=== PATIENT | female | born 2000 | race Caucasian/White ===

== ENCOUNTER 2020-12-30 14:22 | Observation (INO) | payer OTHER ==
[~2020-12-30] VITALS: Ht 160 cm; Wt 78.9 kg
[2020-12-30] MEDS ORDERED: LACTATED RINGER'S 1,000 ML INJ STA ×2 (14:33)
[2020-12-30] MEDS ORDERED: ONDANSETRON HCL INJ 2MG/ML 2ML 2 MG/ML VIAL IV STA (14:55)
[2020-12-30 15:01] LABS: BASOPHILS % 0.3 % (0.0-1.0); EOSINOPHILS % 0.1 % (0.0-6.0); HEMATOCRIT 42.9 % (34.2-44.1); HEMOGLOBIN 14.1 g/dL (12.0-16.0); LYMPHOCYTES # (AUTO) 2.4 (1.0-3.2); LYMPHOCYTES % 31.2 % (18.0-39.1); MEAN CORPUSCULAR HEMOGLOBIN 28.3 pg (28-32); MEAN CORPUSCULAR HGB CONC 32.9 g/dL (31-35); MEAN CORPUSCULAR VOLUME 86.1 fL (81-99); MONOCYTES # (AUTO) 0.6 (0.2-0.8); MONOCYTES % 7.6 % (4.4-11.3); NEUTROPHILS # (AUTO) 4.6 (2.1-6.9); NEUTROPHILS % 60.7 % (38.7-80.0); PLATELET COUNT 341 x10e3/uL (140-360); RED BLOOD COUNT 4.98 x10e6/uL (3.6-5.1); RED CELL DISTRIBUTION WIDTH 14.6 % (11.7-14.4)
[2020-12-30] MEDS ORDERED: ONDANSETRON HCL INJ 2MG/ML 2ML 2 MG/ML VIAL ONE (15:02)
[2020-12-30 15:15] LABS: CLARITY,URINE SL CLOUDY (CLEAR); COLOR,URINE YELLOW (YELLOW); KETONES,URINE >=160 (NEGATIVE); LEUKOCYTE ESTERASE ,URINE NEGATIVE (NEGATIVE); NITRITE,URINE NEGATIVE (NEGATIVE); PROTEIN,URINE DIPSTICK 2+ (NEGATIVE)
[2020-12-30 15:16] LABS: URINE UROBILINOGEN 0.2 mg/dL (0.2 - 1)
[2020-12-30 15:22] LABS: AMORPHOUS SEDIMENT,URINE FEW (FEW); BACTERIA,URINE MANY /HPF; EPITHELIAL CELLS,URINE MODERATE /LPF
[2020-12-30 15:22] LABS: ALANINE AMINOTRANSFERASE 46 IU/L (0-55); ALBUMIN 4.5 g/dL (3.5-5.0); ALBUMIN/GLOBULIN RATIO 1.1 (0.8-2.0); ALKALINE PHOSPHATASE 78 IU/L (40-150); ANION GAP 28.5 mmol/L (8-16); BLOOD UREA NITROGEN < 5 mg/dL (7-26); BUN/CREATININE RATIO 6 (6-25); CARBON DIOXIDE 13 mmol/L (22-29); CHLORIDE 103 mmol/L (98-107); CREATINE KINASE 54 IU/L (29-168); CREATININE, SERUM 0.84 mg/dL (0.57-1.11); EST GLOMERULAR FILTRATION RATE > 60 ML/MIN (60-); GLUCOSE 103 mg/dL (74-118); POTASSIUM 3.5 mmol/L (3.5-5.1); SODIUM 141 mmol/L (136-145)
[2020-12-30] MEDS ORDERED: SODIUM CHLORIDE 0.9% 50ML 50 ML ONE (15:36)
[2020-12-30] MEDS ORDERED: IOPAMIDOL 370 MG/ML 200 ML INFUS..BTL INJ ONE (15:37)
[2020-12-30] MEDS ORDERED: ONDANSETRON HCL INJ 2MG/ML 2ML 2 MG/ML VIAL IV PRN (17:00)
[2020-12-30] MEDS ORDERED: MULTIVITAMINS- 12 INJECTION 10 ML, FOLIC ACID MDV 5 MG, THIAMINE HCL INJ 500 MG in SODI... IV ONE (17:00)
[2020-12-30] MEDS: SODIUM CHLORIDE 0.9% 1000ML 1,000 ML IV SCH (17:17)
[2020-12-30] MEDS ORDERED: SODIUM CHLORIDE 0.9% 1000ML 1,000 ML ONE (17:21)
[2020-12-30 22:27] VITALS: BP 132/86
[2020-12-30 22:35] VITALS: BP 132/86
[2020-12-30] MEDS ORDERED: ULTRAM50 MG PO (22:43)
[2020-12-30] MEDS ORDERED: OMEPRAZOLE20 M1 PO (22:43)
[2020-12-30 23:30] VITALS: BP 132/86
[2020-12-31] MEDS: SODIUM CHLORIDE 0.9% 1000ML 1,000 ML IV SCH ×3 (01:36→17:37)
[2020-12-31 04:37] VITALS: BP 108/70
[2020-12-31 04:54] LABS: BASOPHILS % 0.4 % (0.0-1.0); EOSINOPHILS # (AUTO) 0.1 (0.0-0.4); EOSINOPHILS % 1.7 % (0.0-6.0); HEMATOCRIT 36.6 % (34.2-44.1); HEMOGLOBIN 12.1 g/dL (12.0-16.0); LYMPHOCYTES # (AUTO) 4.4 (1.0-3.2); MEAN CORPUSCULAR HEMOGLOBIN 28.7 pg (28-32); MEAN CORPUSCULAR HGB CONC 33.1 g/dL (31-35); MEAN CORPUSCULAR VOLUME 86.7 fL (81-99); MONOCYTES # (AUTO) 0.7 (0.2-0.8); MONOCYTES % 9.5 % (4.4-11.3); NEUTROPHILS # (AUTO) 1.9 (2.1-6.9); NEUTROPHILS % 26.3 % (38.7-80.0); PLATELET COUNT 269 x10e3/uL (140-360); RED BLOOD COUNT 4.22 x10e6/uL (3.6-5.1); RED CELL DISTRIBUTION WIDTH 14.6 % (11.7-14.4)
[2020-12-31 05:22] LABS: ANION GAP 19.1 mmol/L (8-16); CALCIUM 7.7 mg/dL (8.4-10.2); CARBON DIOXIDE 17 mmol/L (22-29); CHLORIDE 111 mmol/L (98-107); CREATININE, SERUM 0.68 mg/dL (0.57-1.11); EST GLOMERULAR FILTRATION RATE > 60 ML/MIN (60-); GLUCOSE 72 mg/dL (74-118); POTASSIUM 3.1 mmol/L (3.5-5.1); SODIUM 144 mmol/L (136-145)
[2020-12-31 05:33] LABS: BLOOD UREA NITROGEN < 2 mg/dL (7-26); BUN/CREATININE RATIO 3 (6-25)
[2020-12-31 07:23] VITALS: BP 116/64
[2020-12-31 07:51] VITALS: BP 116/64
[2020-12-31] MEDS ORDERED: POTASSIUM CHLORIDE 20 MEQ TAB CR PO ONE ×2 (10:45→12:30)
[2020-12-31 11:33] VITALS: BP 124/86
[2020-12-31 16:07] VITALS: BP 105/73
[2020-12-31 20:00] VITALS: BP 118/89
[2021-01-01] VITALS: BP 115/79
[2021-01-01] MEDS: SODIUM CHLORIDE 0.9% 1000ML 1,000 ML IV SCH ×2 (03:10→08:29)
[2021-01-01 04:30] VITALS: BP 101/63
[2021-01-01 08:01] VITALS: BP 121/76
[2021-01-01 08:11] VITALS: BP 121/76
[2021-01-01 08:22] LABS: BASOPHILS % 0.5 % (0.0-1.0); EOSINOPHILS # (AUTO) 0.2 (0.0-0.4); EOSINOPHILS % 2.6 % (0.0-6.0); HEMATOCRIT 35.5 % (34.2-44.1); HEMOGLOBIN 11.7 g/dL (12.0-16.0); LYMPHOCYTES # (AUTO) 3.5 (1.0-3.2); LYMPHOCYTES % 59.5 % (18.0-39.1); MEAN CORPUSCULAR VOLUME 87.9 fL (81-99); MONOCYTES # (AUTO) 0.6 (0.2-0.8); MONOCYTES % 9.4 % (4.4-11.3); NEUTROPHILS # (AUTO) 1.6 (2.1-6.9); NEUTROPHILS % 27.8 % (38.7-80.0); PLATELET COUNT 251 x10e3/uL (140-360); RED BLOOD COUNT 4.04 x10e6/uL (3.6-5.1); RED CELL DISTRIBUTION WIDTH 14.6 % (11.7-14.4)
[2021-01-01 08:41] LABS: ANION GAP 16.1 mmol/L (8-16); CALCIUM 7.5 mg/dL (8.4-10.2); CARBON DIOXIDE 23 mmol/L (22-29); CHLORIDE 105 mmol/L (98-107); EST GLOMERULAR FILTRATION RATE > 60 ML/MIN (60-); GLUCOSE 71 mg/dL (74-118); POTASSIUM 3.1 mmol/L (3.5-5.1); SODIUM 141 mmol/L (136-145)
[2021-01-01 08:42] LABS: BLOOD UREA NITROGEN < 2 mg/dL (7-26); BUN/CREATININE RATIO 3 (6-25)
[2021-01-01] MEDS ORDERED: POTASSIUM CHLORIDE 20 MEQ TAB CR PO STA (11:09)
[2021-01-01 11:30] VITALS: BP 117/75
[2021-01-01] MEDS ORDERED: POTASSIUM CHLORIDE 20 MEQ TAB CR PO ONE (13:00)
== END 2021-01-01 13:45 | disposition home or self-care (01) ==
LOC: ER 15:23 → ERHOLD 16:48 → IMCU 22:08
DX: E86.0 Dehydration (principal); E87.2 Acidosis; Z98.84 Bariatric surgery status; E87.6 Hypokalemia; Z20.822 Contact with and (suspected) exposure to COVID-19
CPT/HCPCS: 36415 ×3; 74177; 80048 ×2; 80053; 81001; 82550; 82553; 83690; 84484; 84702; 85025 ×3; 99284; G0378 ×3; J2405; J3411; J7030 ×3; J7121; Q9967; U0002

== ENCOUNTER 2021-01-09 18:32 | Inpatient (IN) | payer OTHER ==
[~2021-01-09] VITALS: Ht 160 cm; Wt 78.9 kg
[~2021-01-09 18:32] MED LIST: OMEPRAZOLE20 M1 PO; ULTRAM50 MG PO
[2021-01-09] MEDS ORDERED: ONDANSETRON HCL INJ 2MG/ML 2ML 2 MG/ML VIAL IV STA (18:47)
[2021-01-09 19:07] LABS: BASOPHILS % 0.4 % (0.0-1.0); EOSINOPHILS # (AUTO) 0.1 (0.0-0.4); EOSINOPHILS % 0.7 % (0.0-6.0); HEMATOCRIT 40.9 % (34.2-44.1); LYMPHOCYTES # (AUTO) 1.8 (1.0-3.2); MEAN CORPUSCULAR HEMOGLOBIN 28.4 pg (28-32); MEAN CORPUSCULAR HGB CONC 31.8 g/dL (31-35); MEAN CORPUSCULAR VOLUME 89.3 fL (81-99); MONOCYTES # (AUTO) 0.5 (0.2-0.8); MONOCYTES % 6.4 % (4.4-11.3); NEUTROPHILS # (AUTO) 4.7 (2.1-6.9); NEUTROPHILS % 66.4 % (38.7-80.0); PLATELET COUNT 279 x10e3/uL (140-360); RED BLOOD COUNT 4.58 x10e6/uL (3.6-5.1); RED CELL DISTRIBUTION WIDTH 14.5 % (11.7-14.4)
[2021-01-09] MEDS: SODIUM CHLORIDE 0.9% 1000ML 1,000 ML IV SCH (19:24)
[2021-01-09 19:27] LABS: ALANINE AMINOTRANSFERASE 63 IU/L (0-55); ALBUMIN 3.9 g/dL (3.5-5.0); ALBUMIN/GLOBULIN RATIO 1.2 (0.8-2.0); ALKALINE PHOSPHATASE 67 IU/L (40-150); ANION GAP 19.3 mmol/L (8-16); BLOOD UREA NITROGEN < 5 mg/dL (7-26); BUN/CREATININE RATIO 8 (6-25); CALCIUM 8.7 mg/dL (8.4-10.2); CARBON DIOXIDE 25 mmol/L (22-29); CHLORIDE 101 mmol/L (98-107); CREATININE, SERUM 0.66 mg/dL (0.57-1.11); EST GLOMERULAR FILTRATION RATE > 60 ML/MIN (60-); GLUCOSE 97 mg/dL (74-118); POTASSIUM 3.3 mmol/L (3.5-5.1); SODIUM 142 mmol/L (136-145)
[2021-01-09 19:28] LABS: CLARITY,URINE CLEAR (CLEAR); COLOR,URINE ORANGE (YELLOW)
[2021-01-09 19:29] LABS: KETONES,URINE >=160 (NEGATIVE); LEUKOCYTE ESTERASE ,URINE LARGE (NEGATIVE); MAGNESIUM 1.6 MG/DL (1.3-2.1); NITRITE,URINE POSITIVE (NEGATIVE); PROTEIN,URINE DIPSTICK >=300 (NEGATIVE); URINE UROBILINOGEN 8 mg/dL (0.2 - 1)
[2021-01-09 19:32] LABS: BACTERIA,URINE MANY /HPF; EPITHELIAL CELLS,URINE MODERATE /LPF; RBC,URINE 21-50 /HPF (0-5)
[2021-01-09] MEDS ORDERED: MORPHINE SULFATE INJ 2 MG/ML SYR IV STA (19:36)
[2021-01-09] MEDS ORDERED: CEFTRIAXONE SOD 1 GM in SODIUM CHLORIDE 0.9% 50ML 50 ML IV ONE (19:45)
[2021-01-09] MEDS ORDERED: CEFTRIAXONE SOD 1 GM/50 ML BAG IV ONE (19:45)
[2021-01-09] MEDS ORDERED: CEFTRIAXONE SOD 1 GM/50 ML BAG IV SCH (22:00)
[2021-01-09] MEDS: CEFTRIAXONE SOD 1 GM in SODIUM CHLORIDE 0.9% 50ML 50 ML IV SCH (23:32)
[2021-01-10] VITALS (8 sets, daily range): BP systolic 110–137; BP diastolic 72–92
[2021-01-10] MEDS: MORPHINE SULFATE INJ 4 MG/ML INJ 1ML IV PRN ×5 (00:45→23:11)
[2021-01-10] MEDS: ONDANSETRON HCL INJ 2MG/ML 2ML 2 MG/ML VIAL IV PRN ×5 (00:45→23:11)
[2021-01-10] MEDS: SODIUM CHLORIDE 0.9% 1000ML 1,000 ML IV SCH ×5 (01:21→22:00)
[2021-01-10 07:49] LABS: BASOPHILS % 0.5 % (0.0-1.0); EOSINOPHILS # (AUTO) 0.1 (0.0-0.4); EOSINOPHILS % 1.9 % (0.0-6.0); HEMATOCRIT 37.2 % (34.2-44.1); HEMOGLOBIN 11.6 g/dL (12.0-16.0); LYMPHOCYTES # (AUTO) 2.9 (1.0-3.2); LYMPHOCYTES % 45.3 % (18.0-39.1); MEAN CORPUSCULAR HEMOGLOBIN 28.4 pg (28-32); MEAN CORPUSCULAR HGB CONC 31.2 g/dL (31-35); MEAN CORPUSCULAR VOLUME 91.2 fL (81-99); MONOCYTES # (AUTO) 0.7 (0.2-0.8); MONOCYTES % 11.6 % (4.4-11.3); NEUTROPHILS # (AUTO) 2.6 (2.1-6.9); NEUTROPHILS % 40.5 % (38.7-80.0); PLATELET COUNT 231 x10e3/uL (140-360); RED BLOOD COUNT 4.08 x10e6/uL (3.6-5.1); RED CELL DISTRIBUTION WIDTH 14.5 % (11.7-14.4)
[2021-01-10 08:09] LABS: ALANINE AMINOTRANSFERASE 48 IU/L (0-55); ALBUMIN 3.3 g/dL (3.5-5.0); ALBUMIN/GLOBULIN RATIO 1.2 (0.8-2.0); ALKALINE PHOSPHATASE 57 IU/L (40-150); AMYLASE 40 U/L (25-125); ANION GAP 14.5 mmol/L (8-16); BLOOD UREA NITROGEN < 5 mg/dL (7-26); CALCIUM 7.8 mg/dL (8.4-10.2); CARBON DIOXIDE 24 mmol/L (22-29); CHLORIDE 107 mmol/L (98-107); CREATININE, SERUM 0.67 mg/dL (0.57-1.11); EST GLOMERULAR FILTRATION RATE > 60 ML/MIN (60-); GLUCOSE 76 mg/dL (74-118); LIPASE 61 U/L (8-78); POTASSIUM 3.5 mmol/L (3.5-5.1); SODIUM 142 mmol/L (136-145)
[2021-01-10 08:10] LABS: BUN/CREATININE RATIO 7 (6-25)
[2021-01-10] MEDS ORDERED: PANTOPRAZOLE 40 MG 10ML VIAL IV SCH (11:00)
[2021-01-10] MEDS: PANTOPRAZOLE 40 MG 10ML VIAL IV SCH (16:51)
[2021-01-10] MEDS ORDERED: SODIUM CHLORIDE 0.9% 50ML 50 ML ONE (21:22)
[2021-01-10] MEDS ORDERED: CEFTRIAXONE SOD 1 GM VIAL ONE (21:22)
[2021-01-10] MEDS: CEFTRIAXONE SOD 1 GM in SODIUM CHLORIDE 0.9% 50ML 50 ML IV SCH (22:00)
[2021-01-11] VITALS: BP 117/71
[2021-01-11] MEDS: ONDANSETRON HCL INJ 2MG/ML 2ML 2 MG/ML VIAL IV PRN ×3 (03:43→13:06)
[2021-01-11] MEDS: MORPHINE SULFATE INJ 4 MG/ML INJ 1ML IV PRN ×3 (03:43→13:06)
[2021-01-11 04:00] VITALS: BP 94/59
[2021-01-11] MEDS: SODIUM CHLORIDE 0.9% 1000ML 1,000 ML IV SCH (04:40)
[2021-01-11 06:08] LABS: BASOPHILS % 0.4 % (0.0-1.0); EOSINOPHILS # (AUTO) 0.1 (0.0-0.4); EOSINOPHILS % 1.4 % (0.0-6.0); HEMATOCRIT 36.3 % (34.2-44.1); HEMOGLOBIN 11.4 g/dL (12.0-16.0); LYMPHOCYTES # (AUTO) 3.8 (1.0-3.2); LYMPHOCYTES % 50.6 % (18.0-39.1); MEAN CORPUSCULAR HEMOGLOBIN 28.2 pg (28-32); MEAN CORPUSCULAR HGB CONC 31.4 g/dL (31-35); MEAN CORPUSCULAR VOLUME 89.9 fL (81-99); MONOCYTES # (AUTO) 0.8 (0.2-0.8); NEUTROPHILS # (AUTO) 2.8 (2.1-6.9); NEUTROPHILS % 37.3 % (38.7-80.0); PLATELET COUNT 251 x10e3/uL (140-360); RED BLOOD COUNT 4.04 x10e6/uL (3.6-5.1); RED CELL DISTRIBUTION WIDTH 14.2 % (11.7-14.4)
[2021-01-11 06:32] LABS: ANION GAP 12.5 mmol/L (8-16); CALCIUM 7.6 mg/dL (8.4-10.2); CARBON DIOXIDE 23 mmol/L (22-29); CHLORIDE 108 mmol/L (98-107); CREATININE, SERUM 0.66 mg/dL (0.57-1.11); EST GLOMERULAR FILTRATION RATE > 60 ML/MIN (60-); GLUCOSE 77 mg/dL (74-118); POTASSIUM 3.5 mmol/L (3.5-5.1); SODIUM 140 mmol/L (136-145)
[2021-01-11 06:41] LABS: BLOOD UREA NITROGEN < 5 mg/dL (7-26); BUN/CREATININE RATIO 8 (6-25)
[2021-01-11 07:07] LABS: FERRITIN 215.45 ng/mL (4.63-204.00)
[2021-01-11] MEDS: PANTOPRAZOLE 40 MG 10ML VIAL IV SCH ×2 (07:55→09:00)
[2021-01-11 07:59] VITALS: BP 109/65
[2021-01-11 09:23] VITALS: BP 109/65
[2021-01-11 12:12] VITALS: BP 101/63
[2021-01-11] MEDS ORDERED: ceftin PO (13:13)
[2021-01-11] MEDS ORDERED: PANTOPRAZOLE SO40 MG PO (13:13)
== END 2021-01-11 13:26 | disposition home or self-care (01) | DRG 689 ==
LOC: ER 18:50 → ERHOLD 21:53 → MED/SURG 01-10 00:40
DX: N39.0 Urinary tract infection, site not specified (principal); K85.90 Acute pancreatitis without necrosis or infection, unspecified; I10 Essential (primary) hypertension; G40.909 Epilepsy, unspecified, not intractable, without status epilepticus; G44.1 Vascular headache, not elsewhere classified; Z98.84 Bariatric surgery status; K82.8 Other specified diseases of gallbladder; K21.9 Gastro-esophageal reflux disease without esophagitis; K80.80 Other cholelithiasis without obstruction; Z20.822 Contact with and (suspected) exposure to COVID-19
CPT/HCPCS: 36415; 76705; 80048; 80053; 81001; 81025; 82150; 82607; 82728; 82746; 83540; 83690; 83735; 84466; 85025; 85045; 87040; 87086; 96374; 96375; 99284; J0696; J2270; J2405; J7030; U0002

== ENCOUNTER 2021-02-24 04:45 | Emergency (ER) | payer OTHER ==
[~2021-02-24] VITALS: Ht 157.5 cm; Wt 74.8 kg
[~2021-02-24 04:45] MED LIST changes: +PANTOPRAZOLE SO40 MG PO; +ceftin PO
[2021-02-24] MEDS ORDERED: SODIUM CHLORIDE 0.9% 1000ML 1,000 ML IV STA (05:21)
[2021-02-24] MEDS ORDERED: PANTOPRAZOLE 40 MG 10ML VIAL IV STA (05:28)
[2021-02-24] MEDS ORDERED: ONDANSETRON HCL INJ 2MG/ML 2ML 2 MG/ML VIAL IV PRN (05:30)
[2021-02-24 05:52] LABS: BASOPHILS # (AUTO) 0.1 (0.0-0.1); BASOPHILS % 0.5 % (0.0-1.0); EOSINOPHILS # (AUTO) 0.2 (0.0-0.4); EOSINOPHILS % 1.4 % (0.0-6.0); HEMATOCRIT 40.8 % (34.2-44.1); HEMOGLOBIN 13.6 g/dL (12.0-16.0); LYMPHOCYTES # (AUTO) 2.5 (1.0-3.2); MEAN CORPUSCULAR HEMOGLOBIN 28.9 pg (28-32); MEAN CORPUSCULAR HGB CONC 33.3 g/dL (31-35); MEAN CORPUSCULAR VOLUME 86.6 fL (81-99); MONOCYTES # (AUTO) 0.6 (0.2-0.8); MONOCYTES % 5.1 % (4.4-11.3); NEUTROPHILS # (AUTO) 7.6 (2.1-6.9); NEUTROPHILS % 69.6 % (38.7-80.0); PLATELET COUNT 302 x10e3/uL (140-360); RED BLOOD COUNT 4.71 x10e6/uL (3.6-5.1); RED CELL DISTRIBUTION WIDTH 13.2 % (11.7-14.4)
[2021-02-24 06:23] LABS: ALANINE AMINOTRANSFERASE 42 IU/L (0-55); ALBUMIN/GLOBULIN RATIO 1.4 (0.8-2.0); ALKALINE PHOSPHATASE 67 IU/L (40-150); ANION GAP 13.3 mmol/L (8-16); BLOOD UREA NITROGEN 5 mg/dL (7-26); BUN/CREATININE RATIO 8 (6-25); CALCIUM 9.4 mg/dL (8.4-10.2); CARBON DIOXIDE 24 mmol/L (22-29); CHLORIDE 108 mmol/L (98-107); CREATININE, SERUM 0.65 mg/dL (0.57-1.11); EST GLOMERULAR FILTRATION RATE > 60 ML/MIN (60-); GLUCOSE 106 mg/dL (74-118); LIPASE 84 U/L (8-78); POTASSIUM 3.3 mmol/L (3.5-5.1); SODIUM 142 mmol/L (136-145)
[2021-02-24] MEDS ORDERED: DONNATAL/LIDOCAINE/MAALOX 30 ML SUSP PO STA (06:28)
[2021-02-24] MEDS ORDERED: DICYCLOMINE HCL10 MG PO (06:59)
[2021-02-24 07:01] LABS: CLARITY,URINE SL CLOUDY (CLEAR); COLOR,URINE YELLOW (YELLOW)
[2021-02-24 07:02] LABS: KETONES,URINE TRACE (NEGATIVE); LEUKOCYTE ESTERASE ,URINE TRACE (NEGATIVE); NITRITE,URINE NEGATIVE (NEGATIVE); PROTEIN,URINE DIPSTICK NEGATIVE (NEGATIVE); URINE UROBILINOGEN 1 mg/dL (0.2 - 1)
[2021-02-24] MEDS ORDERED: ONDANSETRON ODT4 MG PO (07:02)
[2021-02-24 07:41] LABS: WBC,URINE (MAN) 0-5 /HPF (0-5)
[2021-02-24 07:42] LABS: BACTERIA,URINE FEW /HPF; EPITHELIAL CELLS,URINE FEW /LPF
== END 2021-02-24 08:14 | disposition home or self-care (01) ==
LOC: ER 05:23
DX: R10.11 Right upper quadrant pain (principal); I10 Essential (primary) hypertension; G40.909 Epilepsy, unspecified, not intractable, without status epilepticus; F41.9 Anxiety disorder, unspecified; Z98.84 Bariatric surgery status; F17.210 Nicotine dependence, cigarettes, uncomplicated
CPT/HCPCS: 36415; 80053; 81001; 83690; 84702; 85025; 96374; 96375; 99284; C9113; J2405; J7030

== ENCOUNTER 2021-07-13 13:10 | Emergency (ER) | payer OTHER ==
[~2021-07-13] VITALS: Ht 157.5 cm; Wt 74.8 kg
[~2021-07-13 13:10] MED LIST changes: +DICYCLOMINE HCL10 MG PO; +ONDANSETRON ODT4 MG PO
[2021-07-13] MEDS ORDERED: KETOROLAC TROMETHAMINE 30 MG/ML VIAL IV STA (13:27)
[2021-07-13] MEDS ORDERED: ONDANSETRON HCL INJ 2MG/ML 2ML 2 MG/ML VIAL IV STA (13:27)
[2021-07-13 13:56] LABS: BASOPHILS % 0.3 % (0.0-1.0); EOSINOPHILS # (AUTO) 0.1 (0.0-0.4); EOSINOPHILS % 0.5 % (0.0-6.0); HEMATOCRIT 42.3 % (34.2-44.1); LYMPHOCYTES # (AUTO) 2.3 (1.0-3.2); LYMPHOCYTES % 16.9 % (18.0-39.1); MEAN CORPUSCULAR HEMOGLOBIN 29.3 pg (28-32); MEAN CORPUSCULAR HGB CONC 33.1 g/dL (31-35); MEAN CORPUSCULAR VOLUME 88.5 fL (81-99); MONOCYTES # (AUTO) 0.6 (0.2-0.8); MONOCYTES % 4.4 % (4.4-11.3); NEUTROPHILS # (AUTO) 10.3 (2.1-6.9); NEUTROPHILS % 77.4 % (38.7-80.0); PLATELET COUNT 392 x10e3/uL (140-360); RED BLOOD COUNT 4.78 x10e6/uL (3.6-5.1); RED CELL DISTRIBUTION WIDTH 12.7 % (11.7-14.4)
[2021-07-13 14:20] LABS: CLARITY,URINE CLOUDY (CLEAR); COLOR,URINE RED (YELLOW)
[2021-07-13 14:21] LABS: KETONES,URINE TRACE (NEGATIVE); LEUKOCYTE ESTERASE ,URINE NEGATIVE (NEGATIVE); NITRITE,URINE NEGATIVE (NEGATIVE); PROTEIN,URINE DIPSTICK 2+ (NEGATIVE); URINE UROBILINOGEN 0.2 mg/dL (0.2 - 1)
[2021-07-13 14:24] LABS: LIPASE 50 U/L (8-78)
[2021-07-13 14:26] LABS: ALBUMIN 4.6 g/dL (3.5-5.0); ALBUMIN/GLOBULIN RATIO 1.3 (0.8-2.0); CALCIUM 10.1 mg/dL (8.4-10.2); CREATININE, SERUM 0.79 mg/dL (0.57-1.11)
[2021-07-13 14:31] LABS: BACTERIA,URINE MODERATE /HPF; EPITHELIAL CELLS,URINE RARE /LPF; RBC,URINE >50 /HPF (0-5)
[2021-07-13] MEDS: SODIUM CHLORIDE 0.9% 1000ML 1,000 ML IV SCH ×2 (14:48→16:04)
[2021-07-13 16:26] VITALS: BP 127/75
== END 2021-07-13 16:30 | disposition home or self-care (01) ==
LOC: ER 13:56
DX: N20.0 Calculus of kidney (principal); N39.0 Urinary tract infection, site not specified
CPT/HCPCS: 36415; 74176; 80053; 81001; 83690; 84702; 85025; 87086; 99284; J1885; J2405; J7030

== ENCOUNTER 2021-08-06 09:19 | Emergency (ER) | payer OTHER ==
[~2021-08-06] VITALS: Ht 157.5 cm; Wt 74.8 kg
[2021-08-06] MEDS ORDERED: SODIUM CHLORIDE 0.9% 1000ML 1,000 ML IV STA (09:43)
[2021-08-06] MEDS ORDERED: ONDANSETRON HCL INJ 2MG/ML 2ML 2 MG/ML VIAL IV STA (09:43)
[2021-08-06] MEDS ORDERED: DICYCLOMINE HCL 20 MG/2 ML VIAL IM ONE (09:45)
[2021-08-06 10:09] LABS: BASOPHILS % 0.3 % (0.0-1.0); EOSINOPHILS # (AUTO) 0.1 (0.0-0.4); EOSINOPHILS % 0.8 % (0.0-6.0); HEMATOCRIT 41.5 % (34.2-44.1); HEMOGLOBIN 13.8 g/dL (12.0-16.0); LYMPHOCYTES # (AUTO) 3.1 (1.0-3.2); LYMPHOCYTES % 31.2 % (18.0-39.1); MEAN CORPUSCULAR HEMOGLOBIN 29.3 pg (28-32); MEAN CORPUSCULAR HGB CONC 33.3 g/dL (31-35); MEAN CORPUSCULAR VOLUME 88.1 fL (81-99); MONOCYTES # (AUTO) 0.5 (0.2-0.8); MONOCYTES % 4.9 % (4.4-11.3); NEUTROPHILS # (AUTO) 6.1 (2.1-6.9); NEUTROPHILS % 62.4 % (38.7-80.0); PLATELET COUNT 369 x10e3/uL (140-360); RED BLOOD COUNT 4.71 x10e6/uL (3.6-5.1); RED CELL DISTRIBUTION WIDTH 12.7 % (11.7-14.4)
[2021-08-06 10:21] LABS: CLARITY,URINE CLOUDY (CLEAR); COLOR,URINE YELLOW (YELLOW); KETONES,URINE NEGATIVE (NEGATIVE); LEUKOCYTE ESTERASE ,URINE NEGATIVE (NEGATIVE); NITRITE,URINE NEGATIVE (NEGATIVE); PROTEIN,URINE DIPSTICK NEGATIVE (NEGATIVE); URINE UROBILINOGEN 0.2 mg/dL (0.2 - 1)
[2021-08-06 10:22] LABS: AMPHETAMINES SCREEN,URINE NEGATIVE (NEGATIVE); BENZODIAZEPINES SCREEN,URINE NEGATIVE (NEGATIVE); PHENCYCLIDINE SCREEN,URINE NEGATIVE (NEGATIVE)
[2021-08-06 10:28] LABS: BACTERIA,URINE MODERATE /HPF; EPITHELIAL CELLS,URINE MANY /LPF; RBC,URINE 0-5 /HPF (0-5)
[2021-08-06 10:48] LABS: ANION GAP 9.5 mmol/L (8-16); CARBON DIOXIDE 25 mmol/L (22-29); CHLORIDE 106 mmol/L (98-107); POTASSIUM 3.5 mmol/L (3.5-5.1); SODIUM 137 mmol/L (136-144)
[2021-08-06 10:49] LABS: BLOOD UREA NITROGEN 8 mg/dL (7-26); BUN/CREATININE RATIO 16 (6-25); CALCIUM 9.8 mg/dL (8.4-10.2); EST GLOMERULAR FILTRATION RATE 156 ML/MIN (60-); GLUCOSE 115 mg/dL (74-118)
[2021-08-06 10:52] LABS: CREATINE KINASE MB < 1.00 ng/mL (0-4.3)
[2021-08-06 12:10] LABS: ALANINE AMINOTRANSFERASE 35 IU/L (0-55); ALKALINE PHOSPHATASE 67 IU/L (40-150); AMYLASE 65 U/L (25-125); CREATINE KINASE 39 IU/L (29-168); LIPASE 68 U/L (8-78)
[2021-08-06 12:28] LABS: ALBUMIN 4.4 g/dL (3.5-5.0); ALBUMIN/GLOBULIN RATIO 1.2 (0.8-2.0); MAGNESIUM 1.7 MG/DL (1.3-2.1)
[2021-08-06] MEDS ORDERED: SODIUM CHLORIDE 0.9% 1000ML 1,000 ML ONE (12:37)
[2021-08-06] MEDS ORDERED: SODIUM CHLORIDE 0.9% 1000ML 1,000 ML IV SCH (12:45)
[2021-08-06 13:24] VITALS: BP 104/57
== END 2021-08-06 13:25 | disposition home or self-care (01) ==
LOC: ER 09:35
DX: R10.13 Epigastric pain (principal); K80.50 Calculus of bile duct without cholangitis or cholecystitis without obstruction; R11.2 Nausea with vomiting, unspecified; Z98.84 Bariatric surgery status
CPT/HCPCS: 36415; 76705; 80053; 80307; 81001; 81025; 82150; 82550; 82553; 83690; 83735; 84484; 85025; 99284; J2405; J7030